=== PATIENT | male | born 1995 | race Caucasian/White ===

== ENCOUNTER 2019-03-07 19:18 | Emergency (ER) | payer OTHER ==
[~2019-03-07] VITALS: Ht 167.6 cm; Wt 72.7 kg
[~2019-03-07 19:18] MED LIST: AUGMENTIN875TAB PO; BACTRIM DS1 TAB OR; BACTROBAN2 % EX; DARVOCET N-100100 - OR; LORTAB 10 OR; LORTAB5 OR; METOCLOPRAM5 MG OR; NAPROSYN500 MG OR; NEXIUM40 M1 OR; NO CURRENT MEDS; ULTRAM50 M1 OR
[2019-03-07] MEDS ORDERED: PERCOCET 5/325M1 TAB PO (21:27)
[2019-03-07] MEDS ORDERED: ORPHENADRINE100 MG PO (21:27)
[2019-03-07 21:30] VITALS: BP 122/72
== END 2019-03-07 21:45 | disposition home or self-care (01) | DRG 556 ==
LOC: ED 19:18
DX: M25.511 Pain in right shoulder (principal); M54.2 Cervicalgia

== ENCOUNTER 2022-05-06 21:22 | Emergency (ER) | payer SELFPAY ==
[~2022-05-06] VITALS: Ht 167.6 cm; Wt 79.0 kg
[~2022-05-06 21:22] MED LIST changes: +ORPHENADRINE100 MG PO; +PERCOCET 5/325M1 TAB PO
[2022-05-06 22:00] VITALS: BP 119/79
[2022-05-06] MEDS ORDERED: ULTRAM50 M1 PO (22:49)
[2022-05-06 22:59] VITALS: BP 119/79
== END 2022-05-06 23:04 | disposition home or self-care (01) | DRG 605 ==
LOC: ED 21:22
DX: S20.212A Contusion of left front wall of thorax, initial encounter (principal); K21.9 Gastro-esophageal reflux disease without esophagitis; F17.210 Nicotine dependence, cigarettes, uncomplicated; X50.0XXA Overexertion from strenuous movement or load, initial encounter; Y93.89 Activity, other specified

== ENCOUNTER 2023-11-16 21:40 | Emergency (ER) | payer SELFPAY ==
[2023-11-16] VITALS (7 sets, daily range): BP systolic 104–135; BP diastolic 63–85
[~2023-11-16] VITALS: Ht 167.6 cm; Wt 85.0 kg
[~2023-11-16 21:40] MED LIST changes: +ULTRAM50 M1 PO
[2023-11-16 22:58] LABS: BASO% 0.2 % (0-3); EOS% 1.3 % (0-8); HEMATOCRIT 43.7 % (39.0-50.0); HEMOGLOBIN 14.4 g/dl (14.0-18.0); IMMATURE GRANULOCYTES 0.1 % (0.0-5.0); LYMPH% 10.6 % (15-41); MEAN CORPUSCULAR HGB 29.8 pG CALC (26.0-32.0); MONO% 7.2 % (2-13); NEUT# 8.48 thou/uL (1.82-7.42); NEUT% 80.6 % (42-76); RED BLOOD COUNT 4.84 mill/uL (4.70-6.10); RED CELL DISTRI WIDTH 13.1 % (11.5-15.5)
[2023-11-16 23:12] LABS: MEAN CELL VOLUME 90.3 fL CALC (80.0-100.0)
[2023-11-16 23:22] LABS: ALBUMIN 4.3 g/dL (3.2-5.0); ALKALINE PHOSPHATASE 80 u/l (38-126); ANION GAP 11 (6-22 (CALC)); BILIRUBIN, TOTAL 0.3 mg/dL (0.2-1.3); BUN 15 mg/dL (9-20); BUN/CREATININE RATIO 20 (12-20 (CALC)); CARBON DIOXIDE 28 mmol/l (22-30); CHLORIDE 108 mmol/l (95-108); CREATININE 0.7 mg/dL (0.7-1.3); ETHYL ALCOHOL 0 mg/dl (0-30); GFR FOR AFR.AMER. > 60 ML/MIN (>=60 (CALC)); GFR OTHER RACES > 60 ML/MIN (>=60 (CALC)); SGOT/AST 52 u/l (17-59); SODIUM 143 mmol/l (137-146); TOTAL PROTEIN 7.2 g/dL (6.3-8.2)
[2023-11-17 00:06] VITALS: BP 121/68
[2023-11-17 01:09] LABS: URINE BILIRUBIN - DIPSTICK Negative (NEGATIVE); URINE BLOOD DIPSTICK Negative (NEGATIVE); URINE GLUCOSE - DIPSTICK Negative (NEGATIVE); URINE KETONE Negative (NEGATIVE); URINE LEUK ESTERASE Negative (NEGATIVE); URINE NITRITE - DIPSTICK Negative (Negative); URINE PROTEIN - DIPSTICK 100 mg/dL (NEG-TRACE); URINE SPECIFIC GRAVITY 1.025; URINE UROBILINOGEN - DIPSTICK 0.2 E.U./dL (0.2)
[2023-11-17 01:11] LABS: URINE COLOR Yellow
[2023-11-17 01:18] LABS: URINE BACTERIA FEW hpf; URINE SQUAMOUS EPITHELIAL CELL FEW EPI/hpf (0-FEW); URINE WBC 0-2 WBC/hpf (0-5)
[2023-11-17 01:20] VITALS: BP 121/68
== END 2023-11-17 01:20 | disposition left against medical advice (07) | DRG 894 ==
LOC: ED 21:40
PROVIDERS: Family Medicine
DX: F19.90 Other psychoactive substance use, unspecified, uncomplicated (principal); K21.9 Gastro-esophageal reflux disease without esophagitis; Z53.29 Procedure and treatment not carried out because of patient's decision for other reasons; Z72.0 Tobacco use